=== PATIENT | female | born 1970 | race African-American/Black ===

== ENCOUNTER 2019-12-04 14:52 | Emergency (ER) | payer OTHER, MEDICAID ==
[~2019-12-04] VITALS: Ht 154.9 cm; Wt 87.5 kg
[2019-12-04 15:00] VITALS: BP 141/99
--- NOTE | 2019-12-04 15:11 | NUR ---
PT AMBULATED TO BATHROOM, STEADY GAIT
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
--- NOTE | 2019-12-04 15:29 | NUR ---
CORY XIAO EVALUATING PT.
[2019-12-04] MEDS ORDERED: KETOROLAC 60 MG/2 ML VIAL IM ONE (15:35)
--- NOTE | 2019-12-04 15:43 | NUR ---
PT TAKEN TO XR VIA WHEELCHAIR.
[2019-12-04] MEDS ORDERED: HYDROcodone/APAP 5/325 MG 1 TAB TAB PO ONE (15:45)
[2019-12-04 16:18] VITALS: BP 141/99
--- NOTE | 2019-12-04 16:19 | NUR ---
Patient discharged with v/s stable. Written and verbal after care instructions given and explained. Patient alert, oriented and verbalized understanding of instructions. Ambulatory with steady gait. All questions addressed prior to discharge. ID band removed. Patient advised to follow up with PMD. Rx of naprosyn and flexeril given. Patient educated on indication of medication including possible reaction and side effects. Opportunity to ask questions provided and answered.
== END 2019-12-04 16:19 | disposition home or self-care (01) ==
LOC: MED 14:52
DX: S16.1XXA Strain of muscle, fascia and tendon at neck level, initial encounter (principal); M25.519 Pain in unspecified shoulder; J45.909 Unspecified asthma, uncomplicated; I10 Essential (primary) hypertension; V49.40XA Driver injured in collision with unspecified motor vehicles in traffic accident, initial encounter; Y93.89 Activity, other specified; Y92.89 Other specified places as the place of occurrence of the external cause; Y99.8 Other external cause status
CPT/HCPCS: 72050; 81025; 99283; J1885